=== PATIENT | male | born 1945 | race Caucasian/White ===

== ENCOUNTER 2021-05-28 19:01 | Emergency (ER) | payer MEDICARE, OTHER ==
--- NOTE | 2021-05-28 19:13 | EDM.PDOC ---
ED HPI GENERAL MEDICAL PROBLEM - General Chief Complaint: Lower Extremity Injury/Pain Stated Complaint: RIGHT LEG SWELLING AND RED Time Seen by Provider: 05/28/21 19:15 Source of Information: Reports: Patient History Limitations: Reports: No Limitations - History of Present Illness INITIAL COMMENTS - FREE TEXT/NARRATIVE: Patient comes into the emergency department with right lower leg X pain. Patient recently had a hip Replace and comes in today with increased redness, swelling, and warmth to the Right lower extremity. Patient states that it has been increasing in redness warmth and swelling the last 48 hours. He denies any disproportionate pain, pallor, decrease in pulses, numbness, tingling, or difficulty ambulating. He does have appointment with his primary care provider tomorrow morning at 10 AM. He denies any chest pain, shortness of breath, dizziness, lightheadedness, generalized fever or fatigue. Patient states he is been relatively healthy since his surgical procedure and has had no major concerns or complaints. He denies any issues with CMS or range of motion at the present time. Onset: Gradual Quality: Reports: Other Severity: Moderate Improves with: Reports: None Worsens with: Reports: None - Related Data Allergies Allergy/AdvReac Type Severity Reaction Status Date / Time cat dander Allergy Wheezing Uncoded 10/01/18 09:06 Home Meds: Home Meds Esomeprazole [NexIUM] 40 mg PO DAILY 02/17/15 [History] Aspirin [Halfprin] 1 tab PO DAILY 03/01/15 [History] Tamsulosin [Flomax] 0.4 mg PO DAILY 03/01/15 [History] atorvaSTATin Calcium [Atorvastatin Calcium] 10 mg PO BEDTIME 03/01/15 [History] ED ROS GENERAL - Review of Systems Review Of Systems: Comprehensive ROS is negative, except as noted in HPI. HEENT: Reports: No Symptoms Respiratory: Reports: No Symptoms Cardiovascular: Reports: No Symptoms Endocrine: Reports: No Symptoms GI/Abdominal: Reports: No Symptoms : Reports: No Symptoms Musculoskeletal: Reports: No Symptoms Skin: Reports: Erythema. Denies: Cyanosis, Mottled, Pallor, Dryness, Pruritis, Wound, Change in Hair/Nails, Lumps Neurological: Reports: No Symptoms Psychiatric: Reports: No Symptoms Hematologic/Lymphatic: Reports: No Symptoms Immunologic: Reports: No Symptoms ED EXAM, GENERAL - Physical Exam Exam: See Below Exam Limited By: No Limitations General Appearance: Alert, WD/WN, No Apparent Distress Eye Exam: Bilateral Eye: PERRL Head: Atraumatic, Normocephalic Neck: Normal Inspection, Supple, Non-Tender, Full Range of Motion Respiratory/Chest: No Respiratory Distress, Lungs Clear, Normal Breath Sounds, Chest Non-Tender Cardiovascular: Normal Peripheral Pulses, Regular Rate, Rhythm, No Edema GI/Abdominal: Normal Bowel Sounds, Soft, Non-Tender Back Exam: Normal Inspection, Full Range of Motion Extremities: Normal Inspection, Pedal Edema, Slow Capillary Refill, Increased Warmth, Redness. No: Joint Swelling, Diana's Sign, Leg Pain, Limited Range of Motion, Mottled, Pallor Neurological: Alert, Oriented, Normal Cognition, Normal Gait Psychiatric: Normal Affect, Normal Mood Skin Exam: Warm, Dry, Intact Course - Vital Signs Last Recorded V/S: Last Vital Signs Temp 36.6 C 05/28/21 19:35 Pulse 84 05/28/21 19:35 Resp 18 05/28/21 19:35 BP 190/97 H 05/28/21 19:35 Pulse Ox 93 L 05/28/21 19:35 - Orders/Labs/Meds Meds: Medications Discontinued Medications Generic Name Dose Route Start Last Admin Trade Name Freq PRN Reason Stop Dose Admin Ceftriaxone Sodium 1 gm/ 0 gm 05/28/21 19:15 05/28/21 20:01 Lidocaine HCl 2.1 ml IM 05/28/21 19:16 1 inj ONETIME ONE Administration Departure - Departure Time of Disposition: 20:00 Disposition: Home, Self-Care 01 Condition: Good Clinical Impression: Cellulitis Qualifiers: Site of cellulitis: extremity Site of cellulitis of extremity: lower extremity Laterality: right Qualified Code(s): L03.115 - Cellulitis of right lower limb - Discharge Information *PRESCRIPTION DRUG MONITORING PROGRAM REVIEWED*: Not Applicable *COPY OF PRESCRIPTION DRUG MONITORING REPORT IN PATIENT NORA: Not Applicable Instructions: Cellulitis, Adult Referrals: Sayra Fernandez PA-C [Primary Care Provider] - Forms: ED Department Discharge Additional Instructions: 1. rest 2. increase your water intake 3. Take all antibiotics as prescribed even if feeling better 4. Take a probiotic while on antibiotics to help promote healthy GI motility 5. Activity and diet as tolerated 6. Can use Ibuprofen and tylenol for any fever or discomfort 7. Follow up with your PCP or return if symptoms progress or worsen 8. Education provided to you regarding your illness, probiotics, antibiotic prescribed 9. Call with any questions or concerns Sepsis Event Note (ED) - Focused Exam Vital Signs: Vital Signs Temp Pulse Resp BP Pulse Ox 05/28/21 19:35 36.6 C 84 18 190/97 H 93 L - Assessment/Plan Assessment:: 1. right leg cellulitis Plan: 1. Rocephin IM given in clinic to start antibiotic tonight. 2. Patient is advised to follow up at his appointment that is scheduled at 10am tomorrow for further recommendation and management. If swelling is still present would recommend patient having an ultrasound completed. Risk of blood clot is low at this time and can have imaging completed on out patient. Consultation completed with [facility] in [place] and they are currently not accepting any medical transfers due to bed restrictions as well. Patient and nursing staff was updated regarding the plan of care 3. Education provided the patient regarding activity, diet, rest, [id number] medication modalities, and follow-up care was provided 4. Patient and family are agreeable to the above plan of care 5. All questions and concerns were addressed with the patient and family prior to discharge
[2021-05-28] MEDS ORDERED: cefTRIAXone 1 GM, Lidocaine 1% 2.1 ML IM ONE ×2 (19:15)
[2021-05-28 19:57] VITALS: BP 190/97; PULSE 84
== END 2021-05-28 19:45 | disposition home or self-care (01) ==
LOC: VM.ED 19:01
DX: L03.115 Cellulitis of right lower limb (principal); Z79.82 Long term (current) use of aspirin; Z79.899 Other long term (current) drug therapy; Z91.09 Other allergy status, other than to drugs and biological substances
CPT/HCPCS: 96372; 99283; J0696

== ENCOUNTER 2024-07-05 02:25 | Emergency (ER) | payer MEDICARE, OTHER ==
[2024-07-05] MEDS ORDERED: Sodium Chloride 0.9% 1,000 ML IV ONE (02:30)
[2024-07-05] MEDS ORDERED: EPINEPHrine 1:10,000 1 MG/10 ML Syringe ONE (02:31)
== END 2024-07-05 04:37 | disposition expired ==
LOC: VM.ED 02:25
DX: I46.9 Cardiac arrest, cause unspecified (principal); Z91.048 Other nonmedicinal substance allergy status; Z88.8 Allergy status to other drugs, medicaments and biological substances; Z79.899 Other long term (current) drug therapy
CPT/HCPCS: 31500; 92950; 99285; J0171; J7030